=== PATIENT | male | born 1940 | race Caucasian/White ===

== ENCOUNTER → 2017-05-09 | Day surgery (SDC) | payer OTHER ==
[~2017-05-09] MED LIST: DEXAMETHASONE SOD PHOS 4 MG/ML VIAL ONE; EPINEPHrine HCL (1:1000) 1 MG/ML VIAL ONE; LACTATED RINGER'S 1000 ML INJ 0 ML ONE; MIDAZOLAM HCL 2 MG/2 ML VIAL ONE; MOXIFLOXACIN 0.5% OPHT SOLN 3 ML BTL ONE; ONDANSETRON HCL 4 MG/2 ML VIAL IV PUSH ONE; PHENYLEPHRINE HCL 10% OPTH SOLN 5 ML BTL ONE; PROPOFOL 200 MG/20 ML AMP IV ONE; SODIUM CHLORIDE 0.9% INJ 10 ML ONE; TETRACAINE 0.5% OPTH SOLN 15 ML BTL ONE; TOBRAMYCIN/DEXAMETHASONE OPTH OINT 3.5 GM TUBE ONE; TRIAMCINOLONE ACETONIDE 40 MG/ML VIAL ONE; TROPICAMIDE 1% OPHT SOLN 15 ML BTL ONE; ceFAZolin INJ 1,000 MG VIAL ONE; prednisoLONE ACETATE 1% OPHT SUSP 5 ML BTL ONE
--- NOTE | 2017-05-17 07:11 | TN ---
cc: NIXON EDEN MD DATE OF SURGERY 05/09/2017 POSTOPERATIVE DIAGNOSIS Severe epiretinal membrane, peripheral retinal tear, left eye. PROCEDURE Pars plana vitrectomy, removal of epiretinal membrane/internal limiting membrane, endolaser, partial air-fluid exchange, left eye. COMPLICATIONS None BLOOD LOSS Less than [address] 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 The patient elected for surgical correction understanding the risks, benefits and alternatives and the visual recovery is unknown given the chronicity. PROCEDURE NOTE After informed consent was obtained, the patient was brought to the operating room and general anesthesia was established. The left eye was prepped and draped in a sterile fashion with Betadine in the conjunctival fornix. A three port pars vitrectomy was established with self-retaining infusion cannula. Core vitreous was evacuated and vitreous traction relieved. The ERM/ILM complex was highlighted with ICG and removed with ILM forceps. Retina had renewed mobility and improved contour. Scleral depression examination revealed a peripheral retinal tear with some surrounding scarring which was treated with endolaser. A partial air-fluid exchange was carried out and intravitreal Kenalog was instilled. Trocars were removed and sclerotomies closed. Subconjunctival injection of Ancef and dexamethasone were given. The eye was patched Tobramycin ointment. The patient brought to recovery room in stable condition and continued followup with [facility] for his postoperative care. MD LUCILA Moore/NOLAN /1:00 AM /6:55 AM FRED
== END | disposition home or self-care (01) ==
LOC: ESDC 06:10
PROVIDERS: ATTEND Ophthalmology
DX: H35.372 Puckering of macula, left eye (principal); H33.312 Horseshoe tear of retina without detachment, left eye
CPT/HCPCS: 00145; 67043; J0171; J0690; J1100; J2250; J2405; J3010; J3301; J7120